=== PATIENT | female | born 1965 | race Two or more races ===

== ENCOUNTER 2017-06-14 11:24 | Outpatient (CLI) | payer OTHER | END 2017-06-14 13:36 | disposition home or self-care (01) | LOC: MRI 11:24 | DX: M54.32 Sciatica, left side (principal); M54.31 Sciatica, right side | CPT/HCPCS: 72148 ==

== ENCOUNTER 2018-10-19 12:36 | Outpatient (CLI) | payer OTHER | END 2018-10-19 12:54 | disposition home or self-care (01) | LOC: SONOGRAMA 12:36 | DX: R10.11 Right upper quadrant pain (principal) ==

== ENCOUNTER → 2018-10-19 | Outpatient (CLI) | payer OTHER | END | disposition home or self-care (01) | LOC: NUCLEAR 09:00 | DX: R10.11 Right upper quadrant pain (principal) | CPT/HCPCS: 78227; A9537 ==

== ENCOUNTER 2018-11-06 15:27 | Inpatient (IN) | payer OTHER ==
[~2018-11-06] VITALS: Ht 152.4 cm; Wt 60.3 kg
[~2018-11-06 15:27] MED LIST: ZYRTEC10 M3 PO
== END 2018-11-10 13:44 | DRG 621 ==
LOC: SURH → OB/GYN 11-09 16:59
PROVIDERS: ADMIT Plastic Surgery
PROC: 0WBF0ZZ Excision of Abdominal Wall, Open Approach (ICD-10-PCS; 2018-11-09)
PROC: 0J073ZZ Alteration of Back Subcutaneous Tissue and Fascia, Percutaneous Approach (ICD-10-PCS; principal; 2018-11-09 13:15)
DX: E65 Localized adiposity (principal); M62.08 Separation of muscle (nontraumatic), other site; E88.1 Lipodystrophy, not elsewhere classified

== ENCOUNTER 2020-06-17 15:05 | Outpatient (CLI) | payer OTHER | END 2020-06-17 18:00 | disposition home or self-care (01) | LOC: PPH VACUNA 15:05 | DX: Z23 Encounter for immunization (principal) ==

== ENCOUNTER 2021-11-13 11:54 | Outpatient (CLI) | payer OTHER | END 2021-11-13 12:01 | disposition home or self-care (01) | LOC: LAB 11:54 → RAD 11:54 | PROVIDERS: ATTEND Obstetrics & Gynecology | DX: S29.9XXA Unspecified injury of thorax, initial encounter (principal) ==

== ENCOUNTER 2022-04-07 13:17 | Outpatient (CLI) | payer OTHER | END 2022-04-07 13:27 | disposition home or self-care (01) | LOC: PPH VACUNA 13:17 | PROVIDERS: ATTEND Emergency Medicine Pediatric Emergency Medicine | DX: Z23 Encounter for immunization (principal) ==

== ENCOUNTER 2024-02-07 12:07 | Outpatient (CLI) | payer OTHER ==
[~2024-02-07 12:07] MED LIST changes: +ASA325 M1 PO; +DUI500 PO; +ESTROGEL50 GM TOP; +PERCOCET 5-3251 EACH PO
== END 2024-02-07 12:19 | disposition home or self-care (01) ==
LOC: MRI 12:07
PROVIDERS: ATTEND Physical Medicine & Rehabilitation
DX: S83.91XA Sprain of unspecified site of right knee, initial encounter (principal)
CPT/HCPCS: 73721